=== PATIENT | male | born 1985 | race Caucasian/White ===

== ENCOUNTER 2016-10-11 18:32 | Emergency (ER) | payer OTHER ==
[~2016-10-11] VITALS: Ht 167.6 cm; Wt 63.5 kg
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
--- NOTE | 2016-10-11 19:19 | NUR ---
royer alvarado at bedside for eval.
[2016-10-11] MEDS ORDERED: ACETAMINOPHEN ES 500 MG TABLET ONE (19:23)
[2016-10-11] MEDS: ACETAMINOPHEN 325 MG TABLET PO ONE (19:28)
--- NOTE | 2016-10-11 19:31 | NUR ---
pt to radioplogy for head and facial ct scan via [facility].
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
[2016-10-11 20:59] VITALS: BP 121/77
== END 2016-10-11 21:03 | disposition home or self-care (01) ==
LOC: ER 18:34
DX: S09.90XA Unspecified injury of head, initial encounter (principal); I10 Essential (primary) hypertension; E78.00 Pure hypercholesterolemia, unspecified; W22.8XXA Striking against or struck by other objects, initial encounter; Y93.89 Activity, other specified; Y92.89 Other specified places as the place of occurrence of the external cause; Y99.9 Unspecified external cause status
CPT/HCPCS: 70450; 70486; 99284; A4606; Z7610